=== PATIENT | male | born 1945 | race Caucasian/White ===

== ENCOUNTER 2021-01-25 06:45 | Emergency (ER) | payer BC, MEDICARE ==
[2021-01-25] MEDS ORDERED: Sodium Chloride 0.9% 10 ML Syringe FLUSH PRN (08:29)
[2021-01-25] MEDS ORDERED: cefTRIAXone 2 GM in Sodium Chloride 0.9% 100 ML IV ONE (08:30)
--- NOTE | 2021-01-25 09:14 | EDM.PDOC ---
ED HPI GENERAL MEDICAL PROBLEM - General Chief Complaint: Lower Extremity Injury/Pain Stated Complaint: PAIN IN L FOOT - DIABETIC Time Seen by Provider: 01/25/21 08:27 Source of Information: Reports: Patient, Family History Limitations: Reports: No Limitations - History of Present Illness INITIAL COMMENTS - FREE TEXT/NARRATIVE: The patient presents with left 3rd toe pain, redness and swelling. This started a few days ago. He said he cut his toenail to short about a week ago. He had an abrasion to the tip of his 3rd toe. A couple days ago he started noticing some redness and more pain. The pain has increased and there is more redness in his foot. He is a diabetic. He has no fever, chills, cough, chest pain, shortness of breath, abdominal pain, nausea or vomiting. Onset: Gradual Duration: Day(s): Location: Reports: Lower Extremity, Left (3rd toe) Quality: Reports: Sharp Severity: Moderate Improves with: Reports: Immobilization Worsens with: Reports: Movement Context: Reports: Trauma (Dropped a can on it) Associated Symptoms: Reports: No Other Symptoms - Related Data Allergies Allergy/AdvReac Type Severity Reaction Status Date / Time No Known Allergies Allergy Verified 01/25/21 12:01 Home Meds: Home Meds Aspirin [Aspirin EC] 81 mg PO BEDTIME 01/25/21 [History] Clopidogrel [Plavix] 75 mg PO BEDTIME 01/25/21 [History] Empagliflozin [Jardiance] 25 mg PO DAILY 01/25/21 [History] Insulin Glarg,Human.Rec.Analog [Lantus] 20 unit SQ BEDTIME 01/25/21 [History] Metoprolol Succinate 50 mg PO DAILY 01/25/21 [History] atorvaSTATin [Lipitor] 20 mg PO BEDTIME 01/25/21 [History] hydroCHLOROthiazide [Hydrochlorothiazide] 25 mg PO DAILY 01/25/21 [History] lisinopriL [Lisinopril] 20 mg PO BEDTIME 01/25/21 [History] metFORMIN HCl [Metformin HCl] 1,000 mg PO BID 01/25/21 [History] predniSONE [Prednisone] 5 mg PO DAILY 01/25/21 [History] Review of Systems - Review of Systems Review Of Systems: See Below Constitutional: Reports: No Symptoms Eyes: Reports: No Symptoms Ears: Reports: No Symptoms Nose: Reports: No Symptoms Mouth/Throat: Reports: No Symptoms Respiratory: Reports: No Symptoms Cardiovascular: Reports: No Symptoms GI/Abdominal: Reports: No Symptoms Genitourinary: Reports: No Symptoms Musculoskeletal: Reports: Other (Left 3rd toe pain, swelling and redness) ED EXAM, GENERAL - Physical Exam Exam: See Below Exam Limited By: No Limitations General Appearance: Alert, No Apparent Distress Ears: Normal External Exam Nose: Normal Inspection Head: Atraumatic, Normocephalic Neck: Normal Inspection Respiratory/Chest: No Respiratory Distress, Lungs Clear, Normal Breath Sounds Cardiovascular: Regular Rate, Rhythm, No Edema, No Murmur GI/Abdominal: Soft, Non-Tender, No Organomegaly, No Mass Extremities: Other (Abrasion with scab to the tip of the left 3rd toe, swelling and erythema. The erythema extends into his foot and up his ankle.) Course - Vital Signs Last Recorded V/S: Last Vital Signs Temp 97.1 F 01/25/21 07:15 Pulse 76 01/25/21 07:15 Resp 16 01/25/21 07:15 BP 147/79 H 01/25/21 07:15 Pulse Ox 98 01/25/21 07:15 - Orders/Labs/Meds Orders: Active Orders 24 hr Category Date Time Status Peripheral IV Care [RC] . DIRECTED Care 01/25/21 08:30 Active CULTURE BLOOD [BC] Stat Lab 01/25/21 10:05 Received CULTURE BLOOD [BC] Stat Lab 01/25/21 10:11 Received Sodium Chloride 0.9% [Saline Flush] Med 01/25/21 08:29 Active 10 ml FLUSH ASDIRECTED PRN Blood Culture x2 Reflex Set [OM.PC] Stat Oth 01/25/21 09:52 Ordered Peripheral IV Insertion Adult [OM.PC] Stat Oth 01/25/21 08:29 Ordered Medication Orders Sodium Chloride (Sodium Chloride 0.9% 10 Ml Syringe) 10 ml FLUSH ASDIRECTED PRN PRN Reason: Keep Vein Open Last Admin: 01/25/21 09:05 Dose: 10 ml Documented by: JUDI Labs: Laboratory Tests 01/25/21 01/25/21 01/25/21 Range/Units 09:05 09:05 10:11 WBC 11.32 H (4.23-9.07) K/mm3 RBC 4.31 L (4.63-6.08) M/mm3 Hgb 14.6 (13.7-17.5) gm/dl Hct 43.7 (40.1-51.0) % MCV 101.4 H (79.0-92.2) fl MCH 33.9 H (25.7-32.2) pg MCHC 33.4 (32.2-35.5) g/dl RDW Std Deviation 48.6 H (35.1-43.9) fL Plt Count 196 (163-337) K/mm3 MPV 9.6 (9.4-12.3) fl Neut % (Auto) 85.4 H (34.0-67.9) % Lymph % (Auto) 4.8 L (21.8-53.1) % [place] % (Auto) 9.1 (5.3-12.2) % Eos % (Auto) 0.2 L (0.8-7.0) Baso % (Auto) 0.1 (0.1-1.2) % Neut # (Auto) 9.67 H (1.78-5.38) K/mm3 Lymph # (Auto) 0.54 L (1.32-3.57) K/mm3 [place] # (Auto) 1.03 H (0.30-0.82) K/mm3 Eos # (Auto) 0.02 L (0.04-0.54) K/mm3 Baso # (Auto) 0.01 (0.01-0.08) K/mm3 Manual Slide Review Abnormal smear Sodium 141 (136-145) mEq/L Potassium 4.2 (3.5-5.1) mEq/L Chloride 103 (98-107) mEq/L Carbon Dioxide 29 (21-32) mEq/L Anion Gap 13.2 (5-15) BUN 23 H (7-18) mg/dL Creatinine 0.8 (0.7-1.3) mg/dL Est Cr Clr Drug Dosing 83.65 mL/min Estimated GFR (MDRD) > 60 (>60) mL/min BUN/Creatinine Ratio 28.8 H (14-18) Glucose 135 H (70-99) mg/dL Lactic Acid 1.6 (0.4-2.0) mmol/L Calcium 9.3 (8.5-10.1) mg/dL Total Bilirubin 0.9 (0.2-1.0) mg/dL AST 14 L (15-37) U/L ALT 24 (16-63) U/L Alkaline Phosphatase 83 (46-116) U/L C-Reactive Protein 6.5 H* (<1.0) mg/dL Total Protein 6.9 (6.4-8.2) g/dl Albumin 3.3 L (3.4-5.0) g/dl Globulin 3.6 gm/dL Albumin/Globulin Ratio 0.9 L (1-2) SARS-CoV-2 RNA (MIR) (NEGATIVE) 01/25/21 Range/Units 10:55 WBC (4.23-9.07) K/mm3 RBC (4.63-6.08) M/mm3 Hgb (13.7-17.5) gm/dl Hct (40.1-51.0) % MCV (79.0-92.2) fl MCH (25.7-32.2) pg MCHC (32.2-35.5) g/dl RDW Std Deviation (35.1-43.9) fL Plt Count (163-337) K/mm3 MPV (9.4-12.3) fl Neut % (Auto) (34.0-67.9) % Lymph % (Auto) (21.8-53.1) % [place] % (Auto) (5.3-12.2) % Eos % (Auto) (0.8-7.0) Baso % (Auto) (0.1-1.2) % Neut # (Auto) (1.78-5.38) K/mm3 Lymph # (Auto) (1.32-3.57) K/mm3 [place] # (Auto) (0.30-0.82) K/mm3 Eos # (Auto) (0.04-0.54) K/mm3 Baso # (Auto) (0.01-0.08) K/mm3 Manual Slide Review Sodium (136-145) mEq/L Potassium (3.5-5.1) mEq/L Chloride (98-107) mEq/L Carbon Dioxide (21-32) mEq/L Anion Gap (5-15) BUN (7-18) mg/dL Creatinine (0.7-1.3) mg/dL Est Cr Clr Drug Dosing mL/min Estimated GFR (MDRD) (>60) mL/min BUN/Creatinine Ratio (14-18) Glucose (70-99) mg/dL Lactic Acid (0.4-2.0) mmol/L Calcium (8.5-10.1) mg/dL Total Bilirubin (0.2-1.0) mg/dL AST (15-37) U/L ALT (16-63) U/L Alkaline Phosphatase (46-116) U/L C-Reactive Protein (<1.0) mg/dL Total Protein (6.4-8.2) g/dl Albumin (3.4-5.0) g/dl Globulin gm/dL Albumin/Globulin Ratio (1-2) SARS-CoV-2 RNA (MIR) Negative (NEGATIVE) Meds: Medications Generic Name Dose Route Start Last Admin Trade Name Freq PRN Reason Stop Dose Admin Sodium Chloride 10 ml 01/25/21 08:29 01/25/21 09:05 Sodium Chloride 0.9% 10 Ml Syringe FLUSH 10 ml ASDIRECTED PRN Administration Keep Vein Open Discontinued Medications Generic Name Dose Route Start Last Admin Trade Name Freq PRN Reason Stop Dose Admin Ceftriaxone Sodium 2 gm/ 100 mls @ 200 mls/hr 01/25/21 08:30 01/25/21 09:12 Sodium Chloride IV 01/25/21 08:59 200 mls/hr ONETIME ONE Administration Vancomycin HCl 2 gm/ Sodium 250 mls @ 250 mls/hr 01/25/21 09:50 01/25/21 10:28 Chloride IV 01/25/21 10:49 Not Given ONETIME ONE Vancomycin HCl 2 gm/ Sodium 500 mls @ 250 mls/hr 01/25/21 10:30 01/25/21 10:27 Chloride IV 01/25/21 12:29 250 mls/hr ONETIME ONE Administration - Re-Assessments/Exams Free Text/Narrative Re-Assessment/Exam: 01/25/21 09:15 I ordered an IV saline lock, rocephin 2 grams IV and labs. 01/25/21 14:12 His WBC is elevated at 11.32. His lactic acid is normal at 1.6. His CRP is elevated at 6.5. He is COVID negative. His x-ray shows fracture within the distal phalanx of the third toe which may represent changes of osteomyelitis since there is adjacent soft tissue swelling. I did also get blood cultures. I ordered a 2 grams of vancymycin. We do not have MRI until Thursday and no orthopedic surgeon. He is from [place], [place]. He would like to go back there for admission. I called [facility], and [place], [place] and they could not accept him. They did not have bed or services needed. I talked with his doctor Dr Castillo and she recommended [facility] in [place], [place]. They did accept him there but the patient [place] not go to the [place]. It is not safe there. I called [facility] and they only do psychs and termite treater care. [facility] [place] [facility] a magneto repairer or ortho. I called [facility] in [place] and they accepted the patient. 01/25/21 14:17 He wants to go by private vehicle. Departure - Departure Time of Disposition: 14:20 Disposition: DC/Tfer to Acute Hospital 02 Condition: Fair Clinical Impression: Cellulitis of left toe, Osteomyelitis of toe of left foot - Discharge Information Referrals: PCP,Not In Area [Primary Care Provider] - Forms: ED Department Discharge Sepsis Event Note (ED) - Focused Exam Vital Signs: Vital Signs Temp Pulse Resp BP Pulse Ox 01/25/21 07:15 97.1 F 76 16 147/79 H 98 - My Orders Last 24 Hours: My Active Orders 01/25/21 08:29 Sodium Chloride 0.9% [Saline Flush] 10 ml FLUSH ASDIRECTED PRN Peripheral IV Insertion Adult [OM.PC] Stat 01/25/21 08:30 Peripheral IV Care [RC] . DIRECTED 01/25/21 09:52 Blood Culture x2 Reflex Set [OM.PC] Stat 01/25/21 10:05 CULTURE BLOOD [BC] Stat 01/25/21 10:11 CULTURE BLOOD [BC] Stat - Assessment/Plan Last 24 Hours: My Active Orders 01/25/21 08:29 Sodium Chloride 0.9% [Saline Flush] 10 ml FLUSH ASDIRECTED PRN Peripheral IV Insertion Adult [OM.PC] Stat 01/25/21 08:30 Peripheral IV Care [RC] . DIRECTED 01/25/21 09:52 Blood Culture x2 Reflex Set [OM.PC] Stat 01/25/21 10:05 CULTURE BLOOD [BC] Stat 01/25/21 10:11 CULTURE BLOOD [BC] Stat
--- NOTE | 2021-01-25 10:03 | CR ---
Left foot: 4 views of the left foot were obtained. Comparison: No prior foot study is available. Vascular calcification is noted. Linear radiopaque object is seen within the soft tissues at the level of the distal shaft of the fifth metatarsal. Plantar spur is seen. Spur is also noted at the attachment of the Achilles tendon. Fracture is seen within the distal phalanx of the third toe which could represent changes of osteomyelitis since there is soft tissue swelling in this region. Other portions of the third toe appear unremarkable. Mild degenerative change is scattered within the midfoot as well as within the tarsometatarsal region. Old injury is noted off the medial malleolus. Impression: 1. Fracture within the distal phalanx of the third toe which may represent changes of osteomyelitis since there is adjacent soft tissue swelling. 2. Other findings as noted above which are nonacute. Diagnostic code #3
[2021-01-25] MEDS ORDERED: Vancomycin 2 GM in Sodium Chloride 0.9% 500 ML IV ONE (10:30)
== END 2021-01-25 14:35 ==
LOC: JD.ED 06:45
DX: L03.032 Cellulitis of left toe (principal); M86.9 Osteomyelitis, unspecified; Z79.82 Long term (current) use of aspirin; Z79.02 Long term (current) use of antithrombotics/antiplatelets; Z79.899 Other long term (current) drug therapy; Z20.822 Contact with and (suspected) exposure to COVID-19; Z79.4 Long term (current) use of insulin
CPT/HCPCS: 36415; 73630; 80053; 83605; 85025; 86140; 87040; 96365; 96366; 96367; 99285; J0696; J3370; J7040; U0002; 99284